=== PATIENT | male | born 1960 | race Caucasian/White ===

== ENCOUNTER 2020-01-13 11:12 | Outpatient (CLI) | payer BC, SELFPAY ==
--- NOTE | ~2020-01-13 | XR_ITS ---
XR knee LT 3V 01/13/2020 11:33 Indication: Left knee pain Procedure: 3 views left knee Comparison: No prior studies for comparison. Findings: No fracture or traumatic malalignment. Small joint effusion. No significant joint space aster rowing. Mild patellofemoral compartment osteoarthritis. Impression: 1: Mild patellofemoral compartment osteoarthritis with small effusion. Reviewed, dictated and finalized at location A. Impression: 1: Mild patellofemoral compartment osteoarthritis with small effusion.
== END 2020-01-13 11:13 | disposition home or self-care (01) ==
LOC: ANHIMG 11:18
PROVIDERS: PCP Family Medicine; Visit Provider Family Medicine
DX: M25.562 Pain in left knee (principal); M17.12 Unilateral primary osteoarthritis, left knee
CPT/HCPCS: 73562

== ENCOUNTER 2021-06-08 15:47 | Outpatient (CLI) | payer OTHER, SELFPAY ==
--- NOTE | ~2021-06-08 | US_ITS ---
EXAMINATION: US venous doppler LE RT EXAM DATE: 06/08/2021 16:11 INDICATION: Right lower leg pain. TECHNIQUE: Multiple grayscale, color flow and Doppler images of the right lower extremity deep venous system were obtained and reviewed. There is no prior study for comparison. FINDINGS: The right common femoral, femoral and profunda veins demonstrate normal color flow, respira tory variation, augmentation and compressibility. Compressibility, color flow confirmed within the r ight popliteal, posterior tibial, peroneal, and greater saphenous veins. IMPRESSION: 1. No right lower extremity deep venous thrombosis. Reviewed, dictated and finalized at location B.
== END 2021-06-08 15:48 | disposition home or self-care (01) ==
LOC: ANHIMG 15:52
PROVIDERS: PCP Nurse Practitioner; Visit Provider Nurse Practitioner Family
DX: M79.661 Pain in right lower leg (principal)
CPT/HCPCS: 93971